=== PATIENT | male | born 1955 | race Caucasian/White ===

== ENCOUNTER 2016-08-20 13:04 | Inpatient (IN) | payer OTHER ==
[~2016-08-20] VITALS: Ht 175.2 cm; Wt 91.0 kg
[2016-08-20 13:04] VITALS: BP 100/68
[~2016-08-20 13:04] MED LIST: ACCUNEB 0.0.63 MG/3 NEB; ADVAIR 500/501 E1 INH; ADVAIR 500/501 EA; ALBUTEROL0.09 MG/A2; ASPIR 8181 MG PO; ASPIRIN BUFFER325 MG PO; ASPIRIN325 M2; ASPIRIN81 M1 PO; ATIVAN0.5 MG; ATIVAN1 MG PO; AUGMENTIN 875875 MG PO; BACTRIM DS 8001 TA1 PO; BENADRYL25 MG PO; BUMETANIDE0.5 MG PO; CALCIUM WITH D1 CTB PO; CELECOXIB200 M1 PO; CLONAZEPAM0.5 MG PO; COMBIVENT1 ARO; COMPAZINE10 M1 PO; CYCLOPHOSPHAMID50 MG PO; DELTASONE10 MG PO; Duoneb 3ML 3 MG/3 ML NEB; FAMILY PHARMAC325 MG PO; FERROUS SU PO; FERROUSAL325 MG PO; FLEXERIL10 MG PO; FLUTICASONE PRO IH; HYDROXYZINE PAM25 M1 PO; IMDUR SA30 MG; IMURAN50 MG PO; IRON65 M1 PO; K-DUR 1010 MEQ PO; LASIX20 MG PO; LEVAQUIN750 M1 PO; LEVOTHYROXIN0.125 MG PO; LEVOTHYROXINE0.2 MG PO; LIPITOR10 MG PO; LISINOPRIL10 MG PO; LISINOPRIL5 MG PO; LOPRESSOR25 MG PO; METOPROLOL SUCC25 M2 PO; METOPROLOL25 MG PO; MIRALAX17 GM/PACK PO; NEBULIZER DEVI; NEURONTIN100 MG PO; NEURONTIN300 MG PO; NITRO-BID2% TP; NITROSTAT0.4 MG SL; OMEPRAZOLE MAGN20 M1; OMEPRAZOLE20 M2 PO; OMEPRAZOLE20 MG PO; OMEPRAZOLE40 MG PO; ORASONE10 MG; ORASONE20 MG; OXYCODONE HYDRO10 M2 PO; OXYCODONE5 MG PO; OXYCONTIN10 MG PO; OXYCONTIN15 M1 PO; OXYGEN NAS; PERCOCET 325 MG1 TA7 PO; PERCOCET 325 MG1 TAB PO; PLAVIX75 MG PO; PRAVACHOL40 MG PO; PREDNICOT10 MG PO; PREDNICOT20 MG PO; PREDNISONE10 MG PO; PREDNISONE5 MG PO; PRILOSEC20 MG PO; PROTONIX40 MG PO; PROZAC20 MG PO; Percocet 325 MG1 TAB PO; RESTORIL15 MG PO; RESTORIL30 MG; RESTORIL7.5 M1 PO; RESTORIL7.5 MG PO; Rimactane,Rifa300 MG PO; SENNA8.6 MG PO; SENOKOT8.8 MG/5 M PO; SERTRALINE100 MG; SERTRALINE100 MG PO; SERTRALINE25 MG PO; SYNTHROID,LEV175 MCG; SYNTHROID,LEV200 MCG PO; SYNTHROID0.2 M1 PO; Synthroid,Lev100 MCG PO; TERBINAFINE HY250 MG PO; TOPROL XL25 MG PO; TRIAMTERENE/HCT1 CAP; VANCO 1.51.5 GM/500 IV; VENTOLIN 02.5 MG/3 M NEB; VERELAN SR 240240 MG; VITAMIN C500 M4 PO; VITAMIN D400 I1 PO; VITAMIN D50000 I3 PO; XANAX1 MG PO; ZITHROMAX Z PA250 MG PO; ZOLOFT100 MG PO; ZYVOX600 MG PO; [UNRECOGNIZED DRUG - CODE] PO; [UNRECOGNIZED DRUG - OTHER] PO
[2016-08-20 13:56] LABS: BASO % 0.2 % (0.0-1.0); EOS # 0.1 10*3/uL (0.0-0.4); EOS % 0.4 % (1.0-4.0); HEMATOCRIT 53.1 % (42.0-52.0); HEMOGLOBIN 15.9 g/dl (14.0-18.0); IG # 0.2 10*3/uL (0.0-0.1); LYMPH # 1.4 10*3/uL (1.3-4.4); LYMPH % 8.1 % (27.0-41.0); MEAN CELL VOLUME 91.6 fl (80.0-94.0); MEAN CORPUSCULAR HGB 27.4 pg (27.0-31.0); MEAN CORPUSCULAR HGB CONC 29.9 g/dl (33.0-37.0); MEAN PLATELET VOLUME 10.5 fl (9.6-12.3); MONO # 0.9 10*3/uL (0.1-1.0); NEUT # 14.8 10*3/uL (2.3-7.9); NEUT % 85.3 % (47.0-73.0); PLATELET COUNT AUTOMATED 222 10*3/uL (130-400); RED CELL DISTRI WIDTH 17.1 % (0-14.5); WHITE BLOOD COUNT 17.4 10*3/uL (4.8-10.8)
[2016-08-20 14:00] VITALS: BP 105/80
[2016-08-20 14:06] LABS: PROTHROMBIN TIME 10.2 SECONDS (9.0-12.4)
[2016-08-20 14:11] LABS: ALBUMIN 3.9 gm/dl (3.1-4.5); ALKALINE PHOSPHATASE 65 U/L (45-117); BILIRUBIN, TOTAL 0.8 mg/dl (0.2-1.0); BUN 32 mg/dl (7-24); C-REACTIVE PROTEIN 3.38 MG/DL (0-0.3); CARBON DIOXIDE 29 mmol/L (21-32); CHLORIDE 104 mmol/L (98-107); EST GLOM FILT AFRICAN AMERICAN > 60 ml/min; GLUCOSE 132 mg/dL (65-99); MAGNESIUM 1.9 mg/dL (1.5-2.1); POTASSIUM 4.3 mmol/L (3.5-5.1); SGOT/AST 8 IU/L (3-35); SGPT/ALT 26 U/L (12-78); SODIUM 139 mmol/L (136-145); TOTAL PROTEIN 7.3 gm/dL (6.4-8.2)
[2016-08-20 14:12] LABS: TROPONIN I < 0.015 ng/ml (<0.045)
[2016-08-20] MEDS ORDERED: VITAMIN C500 M4 PO (15:05)
[2016-08-20] MEDS ORDERED: IRON325 M1 PO (15:06)
[2016-08-20] MEDS ORDERED: VITAMIN E400 UNIT PO (15:07)
[2016-08-20] MEDS ORDERED: ASPIRIN325 M2 PO (15:08)
[2016-08-20] MEDS ORDERED: BAYER ASPIRIN C81 MG PO (15:08)
[2016-08-20] MEDS ORDERED: ACETAMINOPHEN/O1 TA1 PO (15:10)
[2016-08-20] MEDS ORDERED: XANAX1 MG PO (15:11)
[2016-08-20] MEDS ORDERED: LISINOPRIL20 MG PO (15:12)
[2016-08-20] MEDS ORDERED: PROZAC20 MG PO (15:13)
[2016-08-20] MEDS ORDERED: [UNRECOGNIZED DRUG - CODE] PO (15:17)
[2016-08-20 15:47] LABS: BILIRUBIN NEGATIVE (NEGATIVE); BLOOD NEGATIVE (NEGATIVE); CLARITY CLEAR (CLEAR); COLOR YELLOW (YELLOW); GLUCOSE NEGATIVE (NEGATIVE); KETONE NEGATIVE (NEGATIVE); LEUKO ESTERASE NEGATIVE (NEGATIVE); NITRITE NEGATIVE (NEGATIVE); PROTEIN NEGATIVE (NEGATIVE); SPECIFIC GRAVITY <= 1.005 (1.005-1.030); UROBILINOGEN 0.2 E.U./dl (0.2-1.0)
[2016-08-20 15:50] VITALS: BP 121/82
[2016-08-20 15:52] LABS: LA>2 REFLEX 2 HR DRAW NOW
[2016-08-20 15:56] LABS: BACTERIA TRACE; CALCIUM OXALATE CRYSTALS 1+; MUCOUS TRACE; URINE REFLEX COMMENT NO (NO)
[2016-08-20 15:57] LABS: RBC 0-2 rbc/hpf (0-2)
[2016-08-20 17:24] VITALS: BP 111/71
[2016-08-20 18:11] VITALS: BP 116/68
[2016-08-20 20:00] VITALS: BP 121/81
[2016-08-21] VITALS: BP 121/84
[2016-08-21 04:00] VITALS: BP 133/84
[2016-08-21 06:21] LABS: MEAN CELL VOLUME 92.8 fl (80.0-94.0); MEAN CORPUSCULAR HGB 27.9 pg (27.0-31.0); PLATELET COUNT AUTOMATED 167 10*3/uL (130-400); RED BLOOD COUNT 4.88 10*6/uL (4.50-5.90); RED CELL DISTRI WIDTH 16.5 % (0-14.5); WHITE BLOOD COUNT 10.3 10*3/uL (4.8-10.8)
[2016-08-21 06:30] LABS: HEMATOCRIT 45.3 % (42.0-52.0); HEMOGLOBIN 13.6 g/dl (14.0-18.0)
[2016-08-21 06:43] LABS: LYMPHOCYTE # 0.6 10*3/uL (1.3-4.4); METAMYELOCYTES 2 % (0-0); NEUTROPHIL # 9.5 10*3/uL (2.3-7.9); NEUTROPHILS 92 % (47-73); PLATELET SUFFICIENCY NORMAL (NORMAL); TOTAL CELLS COUNTED 100 #CELLS
[2016-08-21 06:45] LABS: HEMOGLOBIN A1c 5.3 % (4.8-5.6)
[2016-08-21 06:58] LABS: ALBUMIN 3.2 gm/dl (3.1-4.5); ALKALINE PHOSPHATASE 53 U/L (45-117); BILIRUBIN, TOTAL 0.5 mg/dl (0.2-1.0); CARBON DIOXIDE 30 mmol/L (21-32); CHLORIDE 107 mmol/L (98-107); CHOLESTEROL 278 mg/dL (<200); EST GLOM FILT AFRICAN AMERICAN > 60 ml/min; FREE T4 0.64 ng/dl (0.76-1.46); GLUCOSE 136 mg/dL (65-99); SGOT/AST 9 IU/L (3-35); SGPT/ALT 17 U/L (12-78); SODIUM 142 mmol/L (136-145); TRIGLYCERIDES 187 mg/dl (<150); VLDL CHOLESTEROL 37 mg/dL (6-40)
[2016-08-21 07:00] LABS: HDL CHOLESTEROL 59 mg/dl (40-60); LDL CHOLESTEROL 182 mg/dL (9-159); TOTAL PROTEIN 6.1 gm/dL (6.4-8.2)
[2016-08-21 07:01] LABS: BUN 18 mg/dl (7-24); POTASSIUM 5.7 mmol/L (3.5-5.1)
[2016-08-21 08:00] VITALS: BP 143/72
[2016-08-21 12:00] VITALS: BP 116/77
[2016-08-21 16:00] VITALS: BP 123/82
[2016-08-21 20:00] VITALS: BP 119/70
[2016-08-22] VITALS: BP 115/79
[2016-08-22 06:37] LABS: HEMATOCRIT 45.3 % (42.0-52.0); HEMOGLOBIN 13.3 g/dl (14.0-18.0); MEAN CELL VOLUME 91.5 fl (80.0-94.0); MEAN CORPUSCULAR HGB 26.9 pg (27.0-31.0); MEAN CORPUSCULAR HGB CONC 29.4 g/dl (33.0-37.0); MEAN PLATELET VOLUME 10.5 fl (9.6-12.3); PLATELET COUNT AUTOMATED 210 10*3/uL (130-400); RED BLOOD COUNT 4.95 10*6/uL (4.50-5.90); RED CELL DISTRI WIDTH 16.2 % (0-14.5); WHITE BLOOD COUNT 12.2 10*3/uL (4.8-10.8)
[2016-08-22 07:05] LABS: LYMPHOCYTE # 0.4 10*3/uL (1.3-4.4); MONOCYTE # 0.5 10*3/uL (0.1-1.0); NEUTROPHIL # 11.3 10*3/uL (2.3-7.9); NEUTROPHILS 93 % (47-73); OVALOCYTES MODERATE; PLATELET SUFFICIENCY NORMAL (NORMAL); TOTAL CELLS COUNTED 100 #CELLS
[2016-08-22 07:27] LABS: BUN 19 mg/dl (7-24); CARBON DIOXIDE 32 mmol/L (21-32); CHLORIDE 104 mmol/L (98-107); EST GLOM FILT AFRICAN AMERICAN > 60 ml/min; GLUCOSE 112 mg/dL (65-99); SODIUM 143 mmol/L (136-145)
[2016-08-22 07:29] LABS: POTASSIUM 4.5 mmol/L (3.5-5.1)
[2016-08-22 08:00] VITALS: BP 112/76
[2016-08-22 12:00] VITALS: BP 165/95
[2016-08-22] MEDS ORDERED: SYNTHROID,LEVO75 MCG PO (14:12)
[2016-08-22] MEDS ORDERED: FLAGYL500 MG PO (14:12)
[2016-08-22] MEDS ORDERED: CIPRO500 MG PO (14:12)
[2016-08-23] MEDS ORDERED: SYNTHROID25 MCG PO (09:11)
== END 2016-08-22 15:44 | disposition home or self-care (01) | DRG 872 ==
LOC: ED 13:04 → EDHOLD 17:17 → 4E 17:17
PROVIDERS: Family Medicine Adult Medicine; Hospitalist; Student in an Organized Health Care Education/Training Program
DX: A41.9 Sepsis, unspecified organism (principal); M31.30 Wegener's granulomatosis without renal involvement; J96.10 Chronic respiratory failure, unspecified whether with hypoxia or hypercapnia; I50.22 Chronic systolic (congestive) heart failure; Z99.81 Dependence on supplemental oxygen; R65.20 Severe sepsis without septic shock; K52.9 Noninfective gastroenteritis and colitis, unspecified; E78.00 Pure hypercholesterolemia, unspecified; E03.9 Hypothyroidism, unspecified; D64.9 Anemia, unspecified; E87.5 Hyperkalemia; I25.10 Atherosclerotic heart disease of native coronary artery without angina pectoris; J44.9 Chronic obstructive pulmonary disease, unspecified; G47.33 Obstructive sleep apnea (adult) (pediatric); Z96.649 Presence of unspecified artificial hip joint; Z95.1 Presence of aortocoronary bypass graft; Z87.891 Personal history of nicotine dependence; Z88.6 Allergy status to analgesic agent; Z88.8 Allergy status to other drugs, medicaments and biological substances; Z79.82 Long term (current) use of aspirin; Z79.899 Other long term (current) drug therapy

== ENCOUNTER 2017-04-01 18:45 | Inpatient (IN) | payer OTHER ==
[2017-04-01] VITALS (7 sets, daily range): BP systolic 84–114; BP diastolic 45–72
[~2017-04-01] VITALS: Ht 175.3 cm; Wt 88.6 kg
--- NOTE | ~2017-04-01 | PR ---
[place], [place] PROGRESS NOTE NAME: GLORIA HERNANDEZ UNIT #: [id number] ROOM: 424 DOCTOR: SVETA DOWNEY DO BIRTHDATE: [birth year] DOS: 04/05/2017 SUBJECTIVE: The patient was seen and examined at bedside. The patient was sitting upright in no acute distress. The patient reports that his respiratory symptoms have resolved and he feels like his respiratory status has returned to baseline. The patient has no new complaints at this time. The patient feels like he would be able to be discharged at this time based on the improvement of his symptoms. OBJECTIVE: VITAL SIGNS: Temperature 97.6, pulse is 93, respirations 18, blood pressure 130/90, pulse ox 98% on 2 liters nasal cannula. GENERAL APPEARANCE: The patient is alert and oriented times 3, no acute distress. HEENT: Exophthalmos. No injection, no drainage. Eyes are clear. Nares are patent. Mucous membranes are moist. NECK: Supple, nontender. CARDIOVASCULAR: Regular rate and rhythm, no murmurs, gallops or rubs. PULMONARY: Mild expiratory wheezes, no rales or rhonchi. ABDOMEN: Soft, nontender with positive bowel sounds. EXTREMITIES: Now extremity edema or erythema. SKIN: No lesions, no rashes. NEUROLOGIC: No focal deficits. Blood cultures remain negative. ASSESSMENT: Stable respiratory status with chronic obstructive pulmonary disease. PLAN OF CARE: The patient will be continued on current medications, is okay for discharge from a pulmonary standpoint to be discharged on a steroid taper starting at 50 mg daily and to finish the taper at 10 mg daily where he chronically takes steroids for his rheumatological diseases. Also continue with antibiotics outpatient as discussed with the primary team. The patient is okay for discharge from a pulmonary standpoint. SVETA DOWNEY DO [place], [place] PROGRESS NOTE NAME: GLORIA HERNANDEZ UNIT #: [id number] ROOM: 424 DOCTOR: NASREEN DO,SVETA BIRTHDATE: [birth year] KERMIT ALY MD CM:DAE [id number] SVETA DOWNEY DO 04/05/17 1254 interface
--- NOTE | ~2017-04-01 | PR ---
[place], [place] PROGRESS NOTE NAME: GLORIA HERNANDEZ UNIT #: [id number] ROOM: 424 DOCTOR: SHEEBA WOOD MD,KERMIT BIRTHDATE: [birth year] DOS: 04/04/2017 SUBJECTIVE: The patient was seen and examined in [id number] encounter today. History was confirmed. Physical examination performed. All the available labs for the patient were reviewed. Assessment and management of the patient for today were personally completed for today's visit. The note done by the electromedical equipment technician was approved. The patient reported reduction in symptoms of shortness of breath. Mild cough noted without any sputum expectoration. Denies any ____ symptoms of chest pain. . Denies any hemoptysis. OBJECTIVE: VITAL SIGNS: Normal temperature, respiratory rate 18, heart rate 87, blood pressure 137/67. HEENT: Examination shows no acute change. NECK: Supple. CARDIOVASCULAR: S1, S2 is audible. LUNGS: Noted without any wheezing or crackles at this time. ABDOMEN: Soft, nontender. IMPRESSION: Stable respiratory status were noted for the patient at this time with shortness of breath, resolving exacerbation of chronic obstructive pulmonary disease. PLAN OF TREATMENT: The patient will be continued on current dose of corticosteroids and bronchodilators, oxygen supplementation. Reduction of Solu-Medrol may be started from tomorrow, depends on further improvement. KERMIT ALY MD CM:PNTRANS [phone] KERMIT WOOD MD 04/04/171934 interface
--- NOTE | ~2017-04-01 | PR ---
[place], [place] PROGRESS NOTE NAME: GLORIA HERNANDEZ UNIT #: [id number] ROOM: 424 DOCTOR: NASREEN SVETA BIRTHDATE: [birth year] DOS: 04/04/2017 SUBJECTIVE: The patient was seen and examined at bedside. The patient was lying at 30 degrees sitting upright with no acute distress. The patient reports that his breathing has improved since admission; however, does not feel like he has returned to baseline. The patient continues to complain of some mild fatigue. The patient denies cough and productive sputum. OBJECTIVE: VITAL SIGNS: Temperature is 97.1, pulse is 87, respirations 18, blood pressure 135/67, pulse ox is 99% on 2 liters nasal cannula. GENERAL APPEARANCE: Alert and oriented times 3, no acute distress. HEENT: Eyes are clear. No injection. Exophthalmos. Nares are patent. Mucous membranes are moist. NECK: Supple, nontender. CARDIOVASCULAR: S1, S2 is audible. LUNGS: Mild to moderate decreased breath sounds noted in all lung kim bilaterally. ABDOMEN: Soft, nontender with positive bowel sounds. EXTREMITIES: No gross deformity. NEUROLOGIC: No focal deficits. LABORATORY DATA: No labs were drawn this morning Blood cultures remain negative. Chest x-ray from 8:30 in the morning 04/03/2017 shows chronic changes of acute process. IMPRESSION: 1. Bilateral lower lobe pneumonia, possibly secondary to aspiration. 2. Sidra's granulomatosis polyangiitis. The patient is being treated by rheumatology. Multiple systems affected including bones, heart and kidneys per the patient. 3. Chronic obstructive pulmonary disease with acute exacerbation. 4. Mild obesity. 5. Chronic intermediate manager steroid use. 6. Acute severe hypercapnic respiratory failure with hypoxia, likely secondary to pneumonia. PLAN OF CARE: Continue with pulmonary therapy including Solu-Medrol 40 q.12h, DuoNeb, Merrem and Mucinex. The patient continues to improve daily clinically. We will continue to follow and assess the patient for stabilization for discharge. SVETA DO NASREEN [place], [place] PROGRESS NOTE NAME: GLORIA HERNANDEZ UNIT #: [id number] ROOM: [facility] DOCTOR: SVETA DOWNEY DO BIRTHDATE: [birth year] KERMIT ALY MD CM:DAE [id number] SVETA DOWNEY DO 04/04/17 1516 interface
--- NOTE | ~2017-04-01 | PR ---
[place], [place] PROGRESS NOTE NAME: GLORIA HERNANDEZ UNIT #: [id number] ROOM: 424 DOCTOR: SHEEBA WOOD MD,KERMIT BIRTHDATE: [birth year] DOS: 04/05/2017 SUBJECTIVE: The patient was independently seen and examined with [id number] encounter, history was confirmed. Physical exam performed. All the labs were reviewed. PHYSICAL EXAMINATION: VITAL SIGNS: The temperature of the patient was noted as normal. The pulse oxygen saturation of the patient recorded as 97% on 2 liters cannula. LUNGS: Noted clear to auscultation bilaterally. ABDOMEN: Soft, nontender. ASSESSMENT: The patient was completed personally and management recommendation of changes were personally made for today's visit. Note done by the medical technical writer was approved. The patient has been showing progressive resolution. Shortness of breath ____ to be much baseline. There were symptoms of coughing, chest pain noted. Vital signs noted stable at the present time. The patient has been getting Solu-Medrol 40 mg IV b.i.d. from yesterday. PLAN OF CARE: He could be discharged home today for the patient with the tapering dose of prednisone starting from 50 mg to be tapered down to 10 mg after the initial 12 days of tapering steroids. Follow up with the primary care attending, legal job titles and the other Rheumatology ____ was recommended. KERMIT ALY MD CM:PNTRANS [id number] KERMIT WOOD MD 04/06/17 1805 interface
--- NOTE | ~2017-04-01 | CON ---
[place], [place] REPORT OF CONSULTATION NAME: GLORIA HERNANDEZ UNIT #: [id number] ROOM: 424 DOCTOR: SHEEBA WOOD MDKERMIT BIRTHDATE: [birth year] DOS: 04/03/2017 REASON FOR CONSULTATION: To assess the patient for current abnormal respiratory symptoms. HISTORY OF PRESENT ILLNESS: This is a 61-year-old white male who was admitted under the hospitalist service on the date of 04/01/2017. He has been admitted to the hospital as the patient reported with symptoms of having increased shortness of breath at home. Shortness of breath occurring with minimal exertion. He denies any symptoms of chest pain or hemoptysis. The patient denies symptoms of flu-like symptoms, but has been exposed to the family members with the flu symptoms. The patient was noted with fatigue and tiredness, which has occurred progressively. No symptoms of chest pain or hemoptysis. The patient denies any symptoms of pain in the chest. REVIEW OF SYSTEMS: CONSTITUTIONAL: He does complain of fatigue and tiredness and symptoms of fever or chills. EYES: Denies any burning, redness, or tenderness. EARS, NOSE, THROAT SYMPTOMS: Denies sore throat, hoarseness, otalgia, postnasal drainage or epistaxis. CARDIOVASCULAR: Denies anginal pain, edema of the lower extremities. The patient has been noted with chronic pain described related to his past surgical problem of the lower extremities and a history of vasculitis. GASTROINTESTINAL: No dysphagia, nausea, vomiting, diarrhea. The patient has been noted dry heaves previously, which has been resolved. SKIN: Denies lesions or rashes. GENITOURINARY: No dysuria, suprapubic pain, or hematuria at the present time. MUSCULOSKELETAL: Chronic severe pain described in multiple parts of the body and the bones and sometimes in the muscles as well. He stated the pain is related to previous vasculitis, history Sidra's granulomatosis. CENTRAL NERVOUS SYSTEM: The patient was noted awake, general weakness, and fatigue. Denies symptoms of dizziness, headache or seizures. Remaining systems were reviewed. They were noted all negative. PAST MEDICAL HISTORY: 1. The patient was known past medical history of chronic polyangiitis known as Sidra's granulomatosis from the past for many years, which has been treated with the pulp and paper tester in the past for many years. 2. Involvement of the kidney related to the Isdra's granulomatosis with chronic kidney disease. 3. History of COPD/centrilobular emphysema. 4. Coronary artery disease. 5. Congestive heart failure, diastolic dysfunction. 6. Hypercholesterolemia. 7. Graves disease. 8. Hypothyroidism. 9. Obstructive sleep apnea disorder. 10. Chronic hypoxic respiratory failure. 11. Arthritis on both hips with previous surgeries done for the patient on the left hip and currently has a surgery done on the right hip in 2017 with a spinal anesthesia. SURGICAL HISTORY: [place], [place] REPORT OF CONSULTATION NAME: GLORIA HERNANDEZ UNIT #: [id number] ROOM: 424 DOCTOR: SHEEBA WOOD MD,[facility] BIRTHDATE: [birth year] 1. Tonsillectomy. 2. Appendectomy. 3. Left hip replacement, acute right hip surgery as well. 4. Coronary artery bypass grafting. 5. Pericardial biopsy diagnosed Sidra's granulomatosis. 6. Cardiac catheterization, coronary artery stent insertion. SOCIAL HISTORY: The patient is and lives at home. Smoking noted from the age of [age] years old, 3 packs of cigarettes per day that was discontinued approximately 21 years ago. History of alcohol or illicit drug use. Occupation related pulmonary exposure. FAMILY HISTORY: Father is living, 80 years old. Mother at 52 due to complication related to lung cancer. MEDICATIONS: The current administered medication noted with use of aspirin, simvastatin, sertraline, levothyroxine, Flomax, metoprolol tartrate, levothyroxine, Solu-Medrol 60 mg b.i.d., Lovenox for DVT prophylaxis, Mucinex 1200 mg p.o. b.i.d. DuoNeb every 4 hours. Azithromycin and meropenem. Other medications have been used p.r.n. DRUG ALLERGIES: NOTED ALLERGY, 1. MORPHINE. 2. CODEINE. 3. FENTANYL. PHYSICAL EXAMINATION: GENERAL: This is a 61-year-old male who has been currently lying in the bed, height 5 feet 9 inches, weight of ____ BMI 28.8. VITAL SIGNS: Temperature of the patient were noted normal, respiratory rate 18-28, heart rate of 89-127, blood pressure 103/62-84/56 noted on admission as well on 04/01/2017. The intake for the patient recorded as 1040, output 1576 mL. The pulse oxygen saturation on admission for the patient on 100% nonrebreather mask noted as 97% on 3 liters nasal cannula, 87% and the oxygen saturation for the patient on 3 liters this morning was noted 98% saturation. HEENT: Mild to moderate obese. Head was atraumatic. Grave disease. The patient exophthalmos. SKIN: Visible skin with no lesions or rashes on the head. Oral mucosa is moist without any ulcers. NECK: Supple. CARDIOVASCULAR: S1, S2 audible. LUNGS: Mild to moderate decreased breath sounds noted in the lungs bilaterally. ABDOMEN: Noted mild to moderate obesity. Bowel sounds present without any tenderness. MUSCULOSKELETAL: No gross deformities. CENTRAL NERVOUS SYSTEM: No gross focal deficit. Examination otherwise limited. LABORATORY DATA: CMP of the patient on was noted normal BUN and creatinine, CO2 33. ProBNP was minimally elevated. CBC done on 04/01/2017; WBC count 12.3, hemoglobin 12.6, hematocrit 42.3, platelet count 135,000 with 87% segmented neutrophils. PT/PTT on 04/01/2017 was normal. Arterial blood gases done at 04/01/2017; pH of 7.32, pCO2 of 60, pO2 of 60.8 on 50% oxygen supplementation nasal cannula. Blood culture from 04/01/2017 of this month, both sets patient aerobic, anaerobic bottles and noted no bacterial growth. CBC this morning; WBC count 12.5. Remaining CBC essentially remains the same as on admission. BMP of patient on 04/03/2017; BUN 25, creatinine normal, glucose was [place], [place] REPORT OF CONSULTATION NAME: GLORIA HERNANDEZ UNIT #: [id number] ROOM: 424 DOCTOR: IZZY GAO MDM BIRTHDATE: [birth year] normal. Review of the radiology data of the patient was personally performed from the PACS images. Chest x-ray of the patient that was done on 04/01/2017 for the patient shows small area of infiltration noted in the left lower lobe. The CTA of the chest does not show any pulmonary embolism, done on 04/01/2017 shows bilateral patchy ground glass opacity finding consistent with a nonspecific interstitial pneumonitis. Small infiltration with area of atelectasis was considered in the bilateral lower lung with nodular opacities. There has not been any other pulmonary nodules noted in the remaining lung or any evidence of cavitation. There was no significant pleural fluid or lymphadenopathy in the mediastinum. The findings were compared to the previous CT scan of the chest that was done on 04/13/2016 shows nonspecific interstitial infiltration, still noted in the lungs bilaterally, and remains unchanged. The lower lobe infiltration was noted as any finding. IMPRESSION: 1. The patient who has been currently admitted to the hospital with bilateral lower lobe pulmonary infiltration. The patient suspicion for the acute pneumonia, may be related to aspiration. 2. History of Sidra's granulomatosis/ polyangiitis which has been noted for this patient treated by the pulp and paper tester with various organ involvement including the bones, heart, and possibly the kidneys as per patient. Overall debilitated status was also noted. 3. The patient with chronic obstructive pulmonary disease and acute exacerbation as well. 4. The patient with mild obesity as well. History of general anxiety disorder, hypothyroidism and others. The exact treatment for the patient at this time for Sidra's granulomatosis only appeared to be prednisone 10 mg use. The use of prednisone again significantly increased the risk of getting recurrent Pseudomonas aeruginosa for the long-term. 5. Chronic long-term steroid use. 6. The patient with acute severe hypercapnic respiratory failure, hypoxic respiratory failure, combination from the acute pneumonia and also acute exacerbation of chronic obstructive pulmonary disease. PLAN OF TREATMENT: The chest x-ray of the patient that was done today shows reduction of the pulmonary infiltration. Continue antibiotic primarily as meropenem for suspected Pseudomonas aeruginosa pneumonia. The patient does have sputum expectoration which could be sent for cultures as well for assessment. Bronchodilators. Gradual reduction of the corticosteroids would be advised as well. The dose of corticosteroids was currently reduced to 40 mg b.i.d. dosing. Continuation of bronchodilators as previously ordered. Monitor chest x-ray closely as well. Further progression. Usual care. All other treatment plan and management to be done as well. Continue DVT prophylaxis. Supportive therapy, plan of management as well. Usual treatment. Zithromax at this time will be discontinued as it is not needed. Meropenem remains as a primary antibiotic. Other supportive therapy, plan of management. Support of the BiPAP for the respiratory failure and also treat the underlying obstructive sleep apnea disorder. Usual care. Also, monitor patient for hyperglycemia as well. Usual care. Thanks for allowing me to participate in the care of this patient. [place], [place] REPORT OF CONSULTATION NAME: GLORIA HERNANDEZ UNIT #: [id number] ROOM: 424 DOCTOR: SHEEBA WOOD MD,KERMIT BIRTHDATE: [birth year] KERMIT ALY MD CM:CONSTR:REPORT OF CONSULTATION 1635 04/04/17 0005 interface
[~2017-04-01 18:45] MED LIST changes: +ASPIRIN325 M2 PO; +BAYER ASPIRIN C81 MG PO; +CIPRO500 MG PO; +FLAGYL500 MG PO; +IRON325 M1 PO; +LISINOPRIL20 MG PO; +PERCOCET 10-321 EACH PO; +SYNTHROID,LEVO75 MCG PO; +SYNTHROID25 MCG PO; +VITAMIN E400 UNIT PO; +[UNRECOGNIZED DRUG - CODE] PO
[2017-04-01 19:31] LABS: HEMATOCRIT 42.3 % (42.0-52.0); HEMOGLOBIN 12.6 g/dl (14.0-18.0); MEAN CELL VOLUME 85.6 fl (80.0-94.0); MEAN CORPUSCULAR HGB 25.5 pg (27.0-31.0); MEAN CORPUSCULAR HGB CONC 29.8 g/dl (33.0-37.0); MEAN PLATELET VOLUME 10.9 fl (9.6-12.3); PLATELET COUNT AUTOMATED 135 10*3/uL (130-400); RED BLOOD COUNT 4.94 10*6/uL (4.50-5.90); RED CELL DISTRI WIDTH 15.2 % (0-14.5); WHITE BLOOD COUNT 12.3 10*3/uL (4.8-10.8)
[2017-04-01 19:45] LABS: ACT PARTIAL THROMBO TIME 25.5 SECONDS (20.8-31.5)
[2017-04-01 19:48] LABS: ALBUMIN 3.6 gm/dl (3.1-4.5); ALKALINE PHOSPHATASE 69 U/L (45-117); BUN 19 mg/dl (7-24); CHLORIDE 104 mmol/L (98-107); CREATININE 1.07 mg/dL (0.70-1.30); LIPASE 98 U/L (73-393); POTASSIUM 4.1 mmol/L (3.5-5.1); SGOT/AST 9 IU/L (3-35); SGPT/ALT 17 U/L (12-78); SODIUM 142 mmol/L (136-145); TOTAL PROTEIN 6.3 gm/dL (6.4-8.2)
[2017-04-01 19:51] LABS: TROPONIN I < 0.015 ng/ml (<0.045)
[2017-04-01 19:56] LABS: ATYPICAL LYMPHS 2 % (0-0); PLATELET SUFFICIENCY NORMAL (NORMAL); TOTAL CELLS COUNTED 100 #CELLS
[2017-04-01 19:57] LABS: OVALOCYTES FEW
[2017-04-01 20:17] LABS: ABG BASE EXCESS 3.5 mmol/L (-2.0-2.0); ABG O2 SATURATION 89.5 % (95-97); ARTERIAL BLOOD GAS PCO2 60.2 mmHg (35-45); ARTERIAL BLOOD GAS PH 7.326 (7.35-7.45); ARTERIAL BLOOD GAS PO2 60.8 mmHg (80-90)
[2017-04-01 20:50] LABS: THYROXINE (T4) TOTAL 11.2 ug/dl (4.5-12.1)
[2017-04-01 20:54] LABS: THYROID STIM HORMONE (HS) 1.59 uIU/ml (0.358-4.75)
[2017-04-02] VITALS: BP 114/72
[2017-04-02 04:00] VITALS: BP 109/78
[2017-04-02] MEDS ORDERED: Synthroid,Levo25 MCG PO (04:42)
[2017-04-02] MEDS ORDERED: ZOLOFT50 MG PO (04:45)
[2017-04-02] MEDS ORDERED: MORPHINE SULFAT15 M7 PO (05:02)
[2017-04-02] MEDS ORDERED: FLOMAX0.4 MG PO (05:05)
[2017-04-02 05:10] LABS: HEMATOCRIT 40.7 % (42.0-52.0); HEMOGLOBIN 12.2 g/dl (14.0-18.0); MEAN CELL VOLUME 86.4 fl (80.0-94.0); MEAN CORPUSCULAR HGB 25.9 pg (27.0-31.0); MEAN PLATELET VOLUME 10.8 fl (9.6-12.3); PLATELET COUNT AUTOMATED 130 10*3/uL (130-400); RED BLOOD COUNT 4.71 10*6/uL (4.50-5.90); RED CELL DISTRI WIDTH 15.2 % (0-14.5); WHITE BLOOD COUNT 14.9 10*3/uL (4.8-10.8)
[2017-04-02] MEDS ORDERED: VITAMIN D50000 UNIT PO (05:18)
[2017-04-02 05:20] LABS: ACT PARTIAL THROMBO TIME 29.6 SECONDS (20.8-31.5); INTERNATIONAL NORM RATIO 1.1 (2.0-3.5)
[2017-04-02] MEDS ORDERED: LEVOTHYROXINE200 MC2 PO (05:21)
[2017-04-02] MEDS ORDERED: PREDNISONE10 MG PO (05:24)
[2017-04-02 05:27] LABS: ALBUMIN 3.2 gm/dl (3.1-4.5); ALKALINE PHOSPHATASE 64 U/L (45-117); BUN 19 mg/dl (7-24); CHLORIDE 104 mmol/L (98-107); CHOLESTEROL 150 mg/dL (<200); CREATININE 1.02 mg/dL (0.70-1.30); FREE T4 1.38 ng/dl (0.76-1.46); PHOSPHOROUS 2.9 mg/dL (2.5-4.9); POTASSIUM 4.9 mmol/L (3.5-5.1); SGOT/AST 9 IU/L (3-35); SGPT/ALT 18 U/L (12-78); SODIUM 141 mmol/L (136-145); TOTAL PROTEIN 6.3 gm/dL (6.4-8.2)
[2017-04-02 05:35] LABS: HDL CHOLESTEROL 54 mg/dl (40-60); LDL CHOLESTEROL 76 mg/dL (9-159); TRIGLYCERIDES 99 mg/dl (<150); VLDL CHOLESTEROL 20 mg/dL (6-40)
[2017-04-02 05:41] LABS: OVALOCYTES MODERATE; PLATELET SUFFICIENCY NORMAL (NORMAL); TOTAL CELLS COUNTED 100 #CELLS
[2017-04-02 07:08] LABS: BILIRUBIN NEGATIVE (NEGATIVE); BLOOD NEGATIVE (NEGATIVE); CLARITY CLEAR (CLEAR); COLOR YELLOW (YELLOW); GLUCOSE NEGATIVE (NEGATIVE); KETONE 1+ (NEGATIVE); LEUKO ESTERASE NEGATIVE (NEGATIVE); NITRITE NEGATIVE (NEGATIVE); PH 5.5 (5.0-9.0); SPECIFIC GRAVITY <= 1.005 (1.005-1.030); UROBILINOGEN 0.2 E.U./dl (0.2-1.0)
[2017-04-02 07:19] LABS: EPITHELIAL CELLS 0-2; WBC 0-2 wbc/hpf (0-5)
[2017-04-02 08:00] VITALS: BP 122/67
[2017-04-02 12:00] VITALS: BP 99/66
[2017-04-02 15:59] VITALS: BP 125/76
[2017-04-02 20:00] VITALS: BP 102/64
[2017-04-03] VITALS: BP 103/62
[2017-04-03 04:00] VITALS: BP 112/62
[2017-04-03 06:00] LABS: HEMATOCRIT 39.7 % (42.0-52.0); HEMOGLOBIN 11.8 g/dl (14.0-18.0); MEAN CELL VOLUME 86.9 fl (80.0-94.0); MEAN CORPUSCULAR HGB 25.8 pg (27.0-31.0); MEAN CORPUSCULAR HGB CONC 29.7 g/dl (33.0-37.0); MEAN PLATELET VOLUME 12.2 fl (9.6-12.3); PLATELET COUNT AUTOMATED 150 10*3/uL (130-400); RED BLOOD COUNT 4.57 10*6/uL (4.50-5.90); RED CELL DISTRI WIDTH 15.9 % (0-14.5); WHITE BLOOD COUNT 12.5 10*3/uL (4.8-10.8)
[2017-04-03 06:10] LABS: BUN 25 mg/dl (7-24); CHLORIDE 104 mmol/L (98-107); CREATININE 0.93 mg/dL (0.70-1.30)
[2017-04-03 06:17] LABS: SODIUM 141 mmol/L (136-145)
[2017-04-03 06:22] LABS: POTASSIUM 3.9 mmol/L (3.5-5.1)
[2017-04-03 07:08] LABS: TOTAL CELLS COUNTED 100 #CELLS
[2017-04-03 07:09] LABS: OVALOCYTES MODERATE; PLATELET SUFFICIENCY NORMAL (NORMAL); SCHISTOCYTES FEW
[2017-04-03 07:53] VITALS: BP 122/45; BP 98/60
[2017-04-03 12:00] VITALS: BP 132/77
[2017-04-03 16:00] VITALS: BP 107/67
[2017-04-03 20:00] VITALS: BP 119/74
[2017-04-04] VITALS: BP 156/76
[2017-04-04 08:00] VITALS: BP 130/70
[2017-04-04 12:00] VITALS: BP 135/67
[2017-04-04 16:00] VITALS: BP 106/56
[2017-04-04 19:44] VITALS: BP 141/84
[2017-04-05] VITALS: BP 137/83
[2017-04-05 08:00] VITALS: BP 130/90
[2017-04-05] MEDS ORDERED: LEVAQUIN750 M1 PO (10:23)
[2017-04-05] MEDS ORDERED: PREDNISONE10 MG PO (10:24)
[2017-04-05] MEDS ORDERED: DUONEB 3 MG/3 ML3 M1 INH (11:09)
== END 2017-04-05 11:40 | disposition home or self-care (01) | DRG 871 ==
LOC: ED 18:45 → 4E 22:31 → ICCU 22:31 → EDHOLD 22:31 → ICCU 22:50 → 4E 04-03 08:58
PROVIDERS: Hospitalist; Nurse Practitioner Family; Student in an Organized Health Care Education/Training Program
PROC: 5A09357 Assistance with Respiratory Ventilation, Less than 24 Consecutive Hours, Continuous Positive Airway Pressure (ICD-10-PCS; principal; 2017-04-01)
PROC: 5A09357 Assistance with Respiratory Ventilation, Less than 24 Consecutive Hours, Continuous Positive Airway Pressure (ICD-10-PCS; 2017-04-03)
DX: A41.9 Sepsis, unspecified organism (principal); J96.21 Acute and chronic respiratory failure with hypoxia; E43 Unspecified severe protein-calorie malnutrition; M31.30 Wegener's granulomatosis without renal involvement; J18.1 Lobar pneumonia, unspecified organism; I50.42 Chronic combined systolic (congestive) and diastolic (congestive) heart failure; J96.22 Acute and chronic respiratory failure with hypercapnia; J44.1 Chronic obstructive pulmonary disease with (acute) exacerbation; J44.0 Chronic obstructive pulmonary disease with (acute) lower respiratory infection; E83.41 Hypermagnesemia; R82.4 Acetonuria; I25.10 Atherosclerotic heart disease of native coronary artery without angina pectoris; R91.1 Solitary pulmonary nodule; Z99.89 Dependence on other enabling machines and devices; D64.9 Anemia, unspecified; D72.810 Lymphocytopenia; R73.9 Hyperglycemia, unspecified; G47.33 Obstructive sleep apnea (adult) (pediatric); E78.00 Pure hypercholesterolemia, unspecified; E03.9 Hypothyroidism, unspecified; R65.20 Severe sepsis without septic shock; E05.00 Thyrotoxicosis with diffuse goiter without thyrotoxic crisis or storm; Z96.643 Presence of artificial hip joint, bilateral; F41.1 Generalized anxiety disorder; E66.9 Obesity, unspecified; Z68.28 Body mass index [BMI] 28.0-28.9, adult; Z95.1 Presence of aortocoronary bypass graft; I25.2 Old myocardial infarction; Z80.1 Family history of malignant neoplasm of trachea, bronchus and lung; Z87.891 Personal history of nicotine dependence; Z79.51 Long term (current) use of inhaled steroids; Z80.9 Family history of malignant neoplasm, unspecified; Z83.6 Family history of other diseases of the respiratory system; Z88.5 Allergy status to narcotic agent; Z79.82 Long term (current) use of aspirin; Z99.81 Dependence on supplemental oxygen; Z79.84 Long term (current) use of oral hypoglycemic drugs; Z79.899 Other long term (current) drug therapy

== ENCOUNTER 2017-07-05 13:27 | Emergency (ER) | payer OTHER ==
[2017-07-05] VITALS (7 sets, daily range): BP systolic 108–133; BP diastolic 71–89
[~2017-07-05] VITALS: Wt 88.5 kg
[~2017-07-05 13:27] MED LIST changes: +DUONEB 3 MG/3 ML3 M1 INH; +FLOMAX0.4 MG PO; +LEVOTHYROXINE200 MC2 PO; +MORPHINE SULFAT15 M7 PO; +Synthroid,Levo25 MCG PO; +VITAMIN D50000 UNIT PO; +ZOLOFT50 MG PO
[2017-07-05 14:05] LABS: BASO # 0.1 10*3/uL (0.0-0.1); BASO % 0.4 % (0.0-1.0); EOS % 0.3 % (1.0-4.0); HEMATOCRIT 49.2 % (42.0-52.0); LYMPH # 1.2 10*3/uL (1.3-4.4); LYMPH % 8.3 % (27.0-41.0); MEAN CELL VOLUME 84.2 fl (80.0-94.0); MEAN CORPUSCULAR HGB 25.7 pg (27.0-31.0); MEAN CORPUSCULAR HGB CONC 30.5 g/dl (33.0-37.0); MEAN PLATELET VOLUME 10.7 fl (9.6-12.3); MONO # 0.8 10*3/uL (0.1-1.0); MONO % 5.5 % (3.0-9.0); NEUT # 12.1 10*3/uL (2.3-7.9); NEUT % 84.9 % (47.0-73.0); PLATELET COUNT AUTOMATED 221 10*3/uL (130-400); RED BLOOD COUNT 5.84 10*6/uL (4.50-5.90); RED CELL DISTRI WIDTH 15.5 % (0-14.5); WHITE BLOOD COUNT 14.2 10*3/uL (4.8-10.8)
[2017-07-05 14:13] LABS: ACT PARTIAL THROMBO TIME 22.6 SECONDS (20.8-31.5); INTERNATIONAL NORM RATIO 0.9 (2.0-3.5)
[2017-07-05 14:26] LABS: ALBUMIN 4.1 gm/dl (3.1-4.5); ALKALINE PHOSPHATASE 64 U/L (45-117); BUN 19 mg/dl (7-24); CHLORIDE 100 mmol/L (98-107); CREATININE 0.89 mg/dL (0.70-1.30); POTASSIUM 3.6 mmol/L (3.5-5.1); SGOT/AST 15 IU/L (3-35); SGPT/ALT 18 U/L (12-78); SODIUM 138 mmol/L (136-145); TOTAL PROTEIN 7.1 gm/dL (6.4-8.2)
[2017-07-05 14:34] LABS: TROPONIN I < 0.015 ng/ml (<0.045)
[2017-07-05] MEDS ORDERED: PREDNISONE10 MG PO (15:40)
[2017-07-05] MEDS ORDERED: PRILOSEC20 M1 PO (15:42)
[2017-07-05 15:55] LABS: BILIRUBIN NEGATIVE (NEGATIVE); BLOOD NEGATIVE (NEGATIVE); CLARITY SL CLOUDY (CLEAR); COLOR YELLOW (YELLOW); GLUCOSE NEGATIVE (NEGATIVE); KETONE NEGATIVE (NEGATIVE); LEUKO ESTERASE NEGATIVE (NEGATIVE); NITRITE NEGATIVE (NEGATIVE); UROBILINOGEN 0.2 E.U./dl (0.2-1.0)
[2017-07-05 16:10] LABS: BACTERIA TRACE; MUCOUS TRACE; RBC 0-2 rbc/hpf (0-2); WBC 0-2 wbc/hpf (0-5)
== END 2017-07-05 20:30 | disposition short-term general hospital (02) ==
LOC: ED 13:27 → EDHOLD 15:36 → ED 15:36 → 5E 16:12 → EDHOLD 16:12 → ED 20:30
PROVIDERS: Emergency Medicine
DX: K56.699 Other intestinal obstruction unspecified as to partial versus complete obstruction (principal); I25.10 Atherosclerotic heart disease of native coronary artery without angina pectoris; E78.00 Pure hypercholesterolemia, unspecified; E03.9 Hypothyroidism, unspecified; I25.2 Old myocardial infarction; I50.9 Heart failure, unspecified; Z88.6 Allergy status to analgesic agent; Z88.8 Allergy status to other drugs, medicaments and biological substances; Z79.82 Long term (current) use of aspirin; Z79.899 Other long term (current) drug therapy

== ENCOUNTER 2017-07-26 23:03 | Inpatient (IN) | payer OTHER ==
[~2017-07-26] VITALS: Ht 175.2 cm; Wt 92.3 kg
[~2017-07-26 23:03] MED LIST changes: +PRILOSEC20 M1 PO
[2017-07-26 23:05] VITALS: BP 160/68
[2017-07-27] VITALS: BP 161/68
[2017-07-27 00:27] LABS: BASO # 0.1 10*3/uL (0.0-0.1); BASO % 0.4 % (0.0-1.0); EOS # 0.1 10*3/uL (0.0-0.4); EOS % 0.7 % (1.0-4.0); HEMATOCRIT 40.3 % (42.0-52.0); HEMOGLOBIN 11.9 g/dl (14.0-18.0); LYMPH # 1.4 10*3/uL (1.3-4.4); LYMPH % 10.3 % (27.0-41.0); MEAN CELL VOLUME 86.7 fl (80.0-94.0); MEAN CORPUSCULAR HGB 25.6 pg (27.0-31.0); MEAN CORPUSCULAR HGB CONC 29.5 g/dl (33.0-37.0); MEAN PLATELET VOLUME 11.3 fl (9.6-12.3); MONO # 0.7 10*3/uL (0.1-1.0); NEUT # 11.4 10*3/uL (2.3-7.9); NEUT % 82.7 % (47.0-73.0); PLATELET COUNT AUTOMATED 258 10*3/uL (130-400); RED BLOOD COUNT 4.65 10*6/uL (4.50-5.90); RED CELL DISTRI WIDTH 15.9 % (0-14.5); WHITE BLOOD COUNT 13.7 10*3/uL (4.8-10.8)
[2017-07-27 00:42] LABS: ALBUMIN 3.4 gm/dl (3.1-4.5); ALKALINE PHOSPHATASE 75 U/L (45-117); BUN 23 mg/dl (7-24); CHLORIDE 102 mmol/L (98-107); CREATININE 0.73 mg/dL (0.70-1.30); LIPASE 110 U/L (73-393); POTASSIUM 4.2 mmol/L (3.5-5.1); SGOT/AST 17 IU/L (3-35); SGPT/ALT 30 U/L (12-78); SODIUM 141 mmol/L (136-145); TOTAL PROTEIN 6.6 gm/dL (6.4-8.2)
[2017-07-27 01:00] VITALS: BP 152/70
[2017-07-27 04:00] VITALS: BP 131/72
[2017-07-27] MEDS ORDERED: COLACE100 MG PO (04:40)
[2017-07-27] MEDS ORDERED: ONDANSETRON HYDR4 M1 PO (04:44)
[2017-07-27] MEDS ORDERED: MORPHINE SULFAT15 MG PO (04:45)
[2017-07-27] MEDS ORDERED: TAMSULOSIN HCL0.4 MG PO (04:46)
[2017-07-27 08:00] VITALS: BP 139/86
[2017-07-27 12:00] VITALS: BP 114/81
== END 2017-07-27 13:00 | disposition hospice, home (50) | DRG 389 ==
LOC: ED 23:03 → EDHOLD 07-27 03:15 → 5E 07-27 03:30
PROVIDERS: Emergency Medicine
PROC: 0D9670Z Drainage of Stomach with Drainage Device, Via Natural or Artificial Opening (ICD-10-PCS; principal; 2017-07-27)
DX: K56.609 Unspecified intestinal obstruction, unspecified as to partial versus complete obstruction (principal); M31.30 Wegener's granulomatosis without renal involvement; I50.22 Chronic systolic (congestive) heart failure; C79.9 Secondary malignant neoplasm of unspecified site; R65.10 Systemic inflammatory response syndrome (SIRS) of non-infectious origin without acute organ dysfunction; C16.9 Malignant neoplasm of stomach, unspecified; G47.33 Obstructive sleep apnea (adult) (pediatric); E66.09 Other obesity due to excess calories; Z96.643 Presence of artificial hip joint, bilateral; I25.10 Atherosclerotic heart disease of native coronary artery without angina pectoris; D72.810 Lymphocytopenia; E78.00 Pure hypercholesterolemia, unspecified; E03.9 Hypothyroidism, unspecified; Z51.5 Encounter for palliative care; D64.9 Anemia, unspecified; Z66 Do not resuscitate; Z88.5 Allergy status to narcotic agent; Z99.89 Dependence on other enabling machines and devices; I25.2 Old myocardial infarction; Z95.1 Presence of aortocoronary bypass graft; Z87.891 Personal history of nicotine dependence; Z82.5 Family history of asthma and other chronic lower respiratory diseases; Z80.9 Family history of malignant neoplasm, unspecified; Z79.82 Long term (current) use of aspirin; Z79.899 Other long term (current) drug therapy; Z79.52 Long term (current) use of systemic steroids; Z68.30 Body mass index [BMI] 30.0-30.9, adult

== ENCOUNTER 2017-07-27 14:25 | Inpatient (IN) | payer OTHER ==
[~2017-07-27] VITALS: Ht 175.3 cm; Wt 92.3 kg
[~2017-07-27 14:25] MED LIST changes: +COLACE100 MG PO; +MORPHINE SULFAT15 MG PO; +ONDANSETRON HYDR4 M1 PO; +TAMSULOSIN HCL0.4 MG PO
[2017-07-27 16:00] VITALS: BP 123/70
[2017-07-27 20:00] VITALS: BP 106/80
[2017-07-28] VITALS: BP 112/88
[2017-07-28 08:00] VITALS: BP 153/92
[2017-07-28 12:00] VITALS: BP 131/95
[2017-07-28 16:00] VITALS: BP 132/69
[2017-07-28 20:00] VITALS: BP 153/92
[2017-07-29] VITALS: BP 175/112
[2017-07-29 04:00] VITALS: BP 136/82
[2017-07-29 06:59] LABS: BASO % 0.1 % (0.0-1.0); HEMATOCRIT 34.9 % (42.0-52.0); LYMPH # 0.6 10*3/uL (1.3-4.4); LYMPH % 8.6 % (27.0-41.0); MEAN CELL VOLUME 88.6 fl (80.0-94.0); MEAN CORPUSCULAR HGB 25.4 pg (27.0-31.0); MEAN CORPUSCULAR HGB CONC 28.7 g/dl (33.0-37.0); MEAN PLATELET VOLUME 11.1 fl (9.6-12.3); MONO # 0.6 10*3/uL (0.1-1.0); MONO % 8.9 % (3.0-9.0); NEUT # 5.5 10*3/uL (2.3-7.9); NEUT % 82.1 % (47.0-73.0); PLATELET COUNT AUTOMATED 242 10*3/uL (130-400); RED BLOOD COUNT 3.94 10*6/uL (4.50-5.90); RED CELL DISTRI WIDTH 15.5 % (0-14.5); WHITE BLOOD COUNT 6.7 10*3/uL (4.8-10.8)
[2017-07-29 07:17] LABS: BUN 20 mg/dl (7-24); CHLORIDE 99 mmol/L (98-107); CREATININE 0.71 mg/dL (0.70-1.30); POTASSIUM 4.6 mmol/L (3.5-5.1); SODIUM 139 mmol/L (136-145)
[2017-07-29 08:00] VITALS: BP 155/99
[2017-07-29 12:00] VITALS: BP 133/77
[2017-07-29 16:57] VITALS: BP 141/77
[2017-07-29 21:23] VITALS: BP 141/77
[2017-07-30] VITALS: BP 155/86
[2017-07-30 06:00] VITALS: BP 112/76
[2017-07-30 08:00] VITALS: BP 155/80
[2017-07-30 12:00] VITALS: BP 171/89
[2017-07-30 16:00] VITALS: BP 150/84
[2017-07-30 20:00] VITALS: BP 112/76
[2017-07-31] VITALS: BP 141/86; BP 173/60
[2017-07-31 06:00] VITALS: BP 112/76
[2017-07-31 08:00] VITALS: BP 140/92
[2017-07-31 12:00] VITALS: BP 146/86
[2017-07-31 16:00] VITALS: BP 126/86
[2017-07-31 20:00] VITALS: BP 112/76
[2017-08-01] VITALS: BP 114/73
[2017-08-01 08:00] VITALS: BP 113/73
[2017-08-01 12:00] VITALS: BP 130/72
[2017-08-01 16:00] VITALS: BP 111/79
[2017-08-01 20:00] VITALS: BP 116/71
[2017-08-02] VITALS: BP 113/85
[2017-08-02 09:21] VITALS: BP 127/73
[2017-08-02 12:00] VITALS: BP 133/86
[2017-08-02 16:00] VITALS: BP 105/45
[2017-08-03] VITALS: BP 151/92
[2017-08-03 04:00] VITALS: BP 140/92
[2017-08-03 08:00] VITALS: BP 133/94
[2017-08-03 12:00] VITALS: BP 137/85
== END 2017-08-03 19:19 | disposition hospice, home (50) | DRG 871 ==
LOC: 5E 14:25
PROVIDERS: Family Medicine
PROC: 02HV33Z Insertion of Infusion Device into Superior Vena Cava, Percutaneous Approach (ICD-10-PCS; principal; 2017-08-01)
DX: A41.9 Sepsis, unspecified organism (principal); J69.0 Pneumonitis due to inhalation of food and vomit; K56.609 Unspecified intestinal obstruction, unspecified as to partial versus complete obstruction; M31.30 Wegener's granulomatosis without renal involvement; I50.22 Chronic systolic (congestive) heart failure; K56.7 Ileus, unspecified; Z99.81 Dependence on supplemental oxygen; C76.2 Malignant neoplasm of abdomen; D72.810 Lymphocytopenia; Z66 Do not resuscitate; E03.9 Hypothyroidism, unspecified; G47.33 Obstructive sleep apnea (adult) (pediatric); D64.9 Anemia, unspecified; E66.09 Other obesity due to excess calories; R00.0 Tachycardia, unspecified; Z51.5 Encounter for palliative care; I25.10 Atherosclerotic heart disease of native coronary artery without angina pectoris; E78.00 Pure hypercholesterolemia, unspecified; I25.2 Old myocardial infarction; Z88.5 Allergy status to narcotic agent; Z88.8 Allergy status to other drugs, medicaments and biological substances; Z83.6 Family history of other diseases of the respiratory system; Z80.9 Family history of malignant neoplasm, unspecified; Z68.30 Body mass index [BMI] 30.0-30.9, adult; Z95.1 Presence of aortocoronary bypass graft